=== PATIENT | female | born 1970 | race Caucasian/White ===

== ENCOUNTER → 2021-04-07 | Outpatient (CLI) | payer OTHER ==
[~2021-04-07] MED LIST: AVAPRO 150 MG150 MG PO; CIPRO500 MG PO; COLACE100 MG PO; COUMADIN 5 MG TA5 M1 PO; COUMADIN PO; ENOXAPARIN100 MG/1 M SUBQ; ESTRACE2 MG PO; FLAGYL500 MG PO; HYDROCODONE-AP1 EAC6 PO; IMITREX 25 MG T25 M1 PO; METOPROLOL SUC100 MG PO; PERCOCET 5-3251 EACH; POTASSIUM20 PO; TOPAMAX 100 MG100 MG PO; VITAMIN D3 COM1 EACH PO
== END ==
LOC: CAT 16:19
PROVIDERS: ATTEND Family Medicine
DX: Z13.6 Encounter for screening for cardiovascular disorders (principal); I25.10 Atherosclerotic heart disease of native coronary artery without angina pectoris; E78.00 Pure hypercholesterolemia, unspecified